=== PATIENT | female | born 1985 | race Caucasian/White ===

== ENCOUNTER → 2017-10-25 09:39 | Outpatient (CLI) | payer BC, SELFPAY ==
[2017-10-25 10:46] LABS: HCT 30.2 % (36.0-46.0); HGB 9.6 g/dL (12.0-15.5); Mean Corp. HGB Concentration 31.8 g/dL (32.0-36.0); Mean Corpuscular Hemoglobin 27.6 pg (27.0-33.0); Mean Corpuscular Volume 86.8 fL (80-95); Mean Platelet Volume 10.1 fL (8.0-11.0); Platelet Count 226 x1000/uL (130-400); RBC 3.48 m/cumm (4.00-5.20); RBC Distribution Width 13.3 % (11.7-14.6); White Blood Cell Count 10.42 k/cumm (4.4-10.8)
[2017-10-25 10:52] LABS: Glucose,1 Hr (Glucola) 111 mg/dL (80-140)
== END ==
PROVIDERS: PCP Nurse Practitioner Family; Visit Provider Midwife
DX: Z34.93 Encounter for supervision of normal pregnancy, unspecified, third trimester (principal); Z3A.28 28 weeks gestation of pregnancy
CPT/HCPCS: 36415; 82950; 85027

== ENCOUNTER 2017-12-12 11:46 | Outpatient (REF) | payer BC, SELFPAY | END 2017-12-12 12:06 | LOC: LBN 11:46 | PROVIDERS: PCP Nurse Practitioner Family; Visit Provider Advanced Practice Midwife | DX: Z34.93 Encounter for supervision of normal pregnancy, unspecified, third trimester (principal); Z36.85 Encounter for antenatal screening for Streptococcus B | CPT/HCPCS: 87081 ==

== ENCOUNTER 2017-12-20 09:04 | Outpatient (CLI) | payer BC, SELFPAY ==
[2017-12-20 09:51] LABS: HCT 29.8 % (36.0-46.0); HGB 9.2 g/dL (12.0-15.5); Mean Corp. HGB Concentration 30.9 g/dL (32.0-36.0); Mean Corpuscular Hemoglobin 23.8 pg (27.0-33.0); Mean Corpuscular Volume 77.2 fL (80-95); Mean Platelet Volume 10.8 fL (8.0-11.0); Platelet Count 266 x1000/uL (130-400); RBC 3.86 m/cumm (4.00-5.20); RBC Distribution Width 14.9 % (11.7-14.6); White Blood Cell Count 12.44 k/cumm (4.4-10.8)
== END 2017-12-20 09:24 ==
PROVIDERS: PCP Nurse Practitioner Family; Visit Provider Advanced Practice Midwife
DX: O99.013 Anemia complicating pregnancy, third trimester (principal)
CPT/HCPCS: 36415; 85027

== ENCOUNTER 2018-01-11 09:30 | Outpatient (RCR) | payer BC, SELFPAY ==
[2017-12-27] MEDS: IRON SUCROSE COMPLEX 200 MG in Normal Saline 100 ML 110 MG IVPB (09:43)
[2017-12-27] MEDS: Normal Saline Flush 10 ML SYR IVP (09:43)
[2018-01-11] MEDS: Normal Saline Flush 10 ML SYR IVP (09:48)
[2018-01-11] MEDS: IRON SUCROSE COMPLEX 200 MG in Normal Saline 100 ML 110 MG IVPB (10:56)
== END 2018-01-25 23:59 | disposition home or self-care (01) ==
LOC: INF 09:30
PROVIDERS: PCP Nurse Practitioner Family; Visit Provider Advanced Practice Midwife
DX: O99.013 Anemia complicating pregnancy, third trimester (principal); Z3A.37 37 weeks gestation of pregnancy
CPT/HCPCS: 96365; J1756

== ENCOUNTER 2018-01-14 08:21 | Outpatient (CLI) | payer BC, SELFPAY | END 2018-01-14 08:41 | PROVIDERS: PCP Nurse Practitioner Family; Visit Provider Advanced Practice Midwife | DX: O48.0 Post-term pregnancy (principal); Z3A.40 40 weeks gestation of pregnancy | CPT/HCPCS: 59025 ==

== ENCOUNTER 2018-01-18 07:36 | Outpatient (CLI) | payer BC, SELFPAY | END 2018-01-18 07:56 | PROVIDERS: PCP Nurse Practitioner Family; Visit Provider Nurse Practitioner | DX: O48.0 Post-term pregnancy (principal); Z3A.41 41 weeks gestation of pregnancy | CPT/HCPCS: 59025 ==

== ENCOUNTER 2018-01-18 11:04 | Inpatient (IN) | payer BC, SELFPAY ==
[2018-01-18] MEDS: Dinoprostone-CERVICAL 10 MG VSUPP VG (19:05)
[2018-01-18] MEDS: Normal Saline Flush 10 ML SYR IVP (19:35)
[2018-01-18 19:55] LABS: HCT 33.8 % (36.0-46.0); HGB 10.4 g/dL (12.0-15.5); Mean Corp. HGB Concentration 30.8 g/dL (32.0-36.0); Mean Corpuscular Hemoglobin 24.3 pg (27.0-33.0); Mean Platelet Volume 10.5 fL (8.0-11.0); Platelet Count 238 x1000/uL (130-400); RBC 4.28 m/cumm (4.00-5.20); White Blood Cell Count 10.35 k/cumm (4.4-10.8)
[2018-01-19] MEDS: Normal Saline Flush 10 ML SYR (08:03)
[2018-01-19] MEDS: Normal Saline Flush 10 ML SYR IVP (09:40)
[2018-01-19] MEDS: Lactated Ringers 1,000 ML 125 ML IV ×2 (09:40→17:14)
[2018-01-19] MEDS: Bupivacaine 0.25% Pres-Free 30 ML VIAL (23:05)
[2018-01-19] MEDS: fentaNYL 100 MCG/2 ML VIAL EP (23:07)
--- NOTE | 2018-01-20 01:14 | W.PM.PROGNOT ---
Date of Service Date of service: 01/20/18 Time of Service: 01:14 Subjective Interval history since last seen: called to evaluate tracing for category 2 tracing persistent lates with good variability and return to baseline pitocin discontinued 6 cm/90/AROM clear agree with non reassuring tracing discussed reason and recommendation for PCS with patient who agrees to proceed to PCS R/B/A reviewed consent signed OR team paged Objective Objective Clinical Data: Intake & Output 01/19/18 01/19/18 01/20/18 11:59 23:59 11:59 Intake Total 17.7 / 17.7 1015.3 / 1015.3 Balance 17.7 / 17.7 1015.3 / 1015.3 Intake: IV 17.7 / 17.7 1015.3 / 1015.3 Laboratory Results WBC 10.35 k/cumm (4.4-10.8) 01/18/18 19:40 RBC 4.28 m/cumm (4.00-5.20) 01/18/18 19:40 Hgb 10.4 g/dL (12.0-15.5) L 01/18/18 19:40 Hct 33.8 % (36.0-46.0) L 01/18/18 19:40 MCV 79.0 fL (80-95) L 01/18/18 19:40 MCH 24.3 pg (27.0-33.0) L 01/18/18 19:40 MCHC 30.8 g/dL (32.0-36.0) L 01/18/18 19:40 RDW 23.0 % (11.7-14.6) H 01/18/18 19:40 Plt Count 238 x1000/uL (130-400) 01/18/18 19:40 MPV 10.5 fL (8.0-11.0) 01/18/18 19:40 Patient ABO/Rh B Positive 01/18/18 19:40 Antibody Screen Negative 01/18/18 19:40
[2018-01-20] MEDS: Sodium Citrate 30 ML CUP PO (02:00)
[2018-01-20] MEDS: Lidocaine 2% Pres-Free 5 ML VIAL (02:10)
--- NOTE | 2018-01-20 03:05 | W.PM.OP ---
Date of service: 01/20/18 Time of Service: 03:05 Operative Note DATE OF PROCEDURE: 01/20/18 PRE-OP DIAGNOSIS: persistent category 2 tracing POST-OP DIAGNOSIS: same PROCEDURE: Primary Low Transverse Cesaran Section SURGEON: Homa Peña MACHINE ETCHER: Lorelei Crawley ANESTHESIA: epidural ESTIMATED BLOOD LOSS: 500 PATHOLOGY: none sent COMPLICATIONS: None Patient was transported to: PACU Patient's condition: stable Implants: none Indications: G1 41.1 weeks persistent category 2 tracing Findings: normal uterus tubes and ovaries viable male infant Apgars 8, 9 weight postponed for skin to skin nuchal cord x 1 ROT Placenta intact 3 vessel cord venous cord pH 7.35 Procedure Description: Indication and Procedure was explained to patient, consent was signed. Patient was brought to the OR. She had established epidural which was bolused, an [id number] mcguire and SCD boots She revieved 2 gms Ancef and 1 gm Azithromycin. A formal time out was performed with all surgical personnel present and concurring right patient right procedure. A vaginal betadine prep was performed and she was prepped and draped in the usual fashion. After establishing adequate epidural anesthesia a Pfanninsteil incision was made 2 cm above the symphysis and carried down to the fascia. The fascia was nicked in the midline and opened sharply bilaterally. The inferior aspect of the fascia was grasped and the rectus muscles sharply dissected attention was turned to the superior aspect of the fascia and in asimilar fashion the fascia was dissected from the rectus muscle. The rectus muscle was sepateded in the midline and the peritoneum was entered bluntly and extended superior and inferiorly with good visualization of the vblsdder. The [id number] flap was created and the bladder blade repositioned. The lower uterine incision was transversely incised to the uterine cavity and th eincision was extended manuallt. The infants head was delivered atraumaticlly with nuchal cord easily reduced body and shoulders followed with ease. Cord was clamped cut and handed to rehab therapy manager. cord pH obtained. The placenta was manually expressed the uterus was exteriorized and cleared of clot and debris. The uterus was closed in a double layer of o-vicryl. Peritenom with 2-0 Fascia 0 Vicryl Sub Q with 3-0 plain Skin closed 4-0 monocryl on Aliza needle Sponge lap needle and instrument count correct x 2.
--- NOTE | 2018-01-20 03:19 | ROE_ITS ---
Date of service: 01/20/18 Time of Service: 03:05 Operative Note DATE OF PROCEDURE: 01/20/18 PRE-OP DIAGNOSIS: persistent category 2 tracing POST-OP DIAGNOSIS: same PROCEDURE: Primary Low Transverse Cesaran Section SURGEON: Homa Peña OUTBOUND TELEMARKETER: Lorelei Crawley ANESTHESIA: epidural ESTIMATED BLOOD LOSS: 500 PATHOLOGY: none sent COMPLICATIONS: None Patient was transported to: PACU Patient's condition: stable Implants: none Indications: G1 41.1 weeks persistent category 2 tracing Findings: normal uterus tubes and ovaries viable male infant Apgars 8, 9 weight postponed for skin to skin nuchal cord x 1 ROT Placenta intact 3 vessel cord venous cord pH 7.35 Procedure Description: Indication and Procedure was explained to patient, consent was signed. Patient was brought to the OR. She had established epidural which was bolused, an [id number] mcguire and SCD boots She revieved 2 gms Ancef and 1 gm Azithromycin. A formal time out was performed with all surgical personnel present and concurring right patient right procedure. A vaginal betadine prep was performed and she was prepped and draped in the usual fashion. After establishing adequate epidural anesthesia a Pfanninsteil incision was made 2 cm above the symphysis and carried down to the fascia. The fascia was nicked in the midline and opened sharply bilaterally. The inferior aspect of the fascia was grasped and the rectus muscles sharply dissected attention was turned to the superior aspect of the fascia and in asimilar fashion the fascia was dissected from the rectus muscle. The rectus muscle was sepateded in the midline and the peritoneum was entered bluntly and extended superior and inferiorly with good visualization of the vblsdder. The [id number] flap was created and the bladder blade repositioned. The lower uterine incision was transversely incised to the uterine cavity and th eincision was extended manuallt. The infants head was delivered atraumaticlly with nuchal cord easily reduced body and shoulders followed with ease. Cord was clamped cut and handed to assembly repairer. cord pH obtained. The placenta was manually expressed the uterus was exteriorized and cleared of clot and debris. The uterus was closed in a double layer of o-vicryl. Peritenom with 2-0 Fascia 0 Vicryl Sub Q with 3-0 plain Skin closed 4-0 monocryl on Aliza needle Sponge lap needle and instrument count correct x 2.
[2018-01-20] MEDS: Lactated Ringers 1,000 ML 200 ML IV (04:13)
--- NOTE | 2018-01-20 11:52 | W.PM.PROGNOT ---
Date of Service Date of service: 01/20/18 Time of Service: 11:52 Assessment and Plan (1) delivery, delivered, current hospitalization: Start date: 01/20/18 Current visit: Yes Status: Acute doing well post op except sensation of spinning checking with anesthesia re possibility of scopolamine side effect CBC pending keep mcguire in until sx ruby ambulate with assistance advance diet as tolerated (2) Dizzinesses: Start date: 01/20/18 Start time: 12:04 Current visit: Yes Status: Acute assessing etiology anesthesia to comment on scopolamine patch checking cbc if no improvement can consider meclazine ambulate with assistance Subjective Patient reports: tolerating liquids well, no flatus and other (having problems with room spinning when she moves her head, and trouble with double vision at distal focal lengths) Interval history since last seen: pain well controlled Exam Const Other: pale appearing, closing eyes to prevent spinning sensation Chest Chest: normal inspection of the chest Other: breast feeding Resp Effort & Inspection: normal respiratory effort Auscultation: clear to auscultation bilaterally Cardio Rhythm: regular rhythm Heart Sounds: S1 normal and S2 normal Other: fundus firm appropriate tenderness dsg dry and intact Extrem General: normal to inspection Right lower extremity: normal to inspection Left lower extremity: normal to inspection Other: SCD boots on bilaterally Objective Objective Clinical Data: Intake & Output 01/19/18 01/19/18 01/20/18 11:59 23:59 11:59 Intake Total 17.7 / 17.7 1015.3 / 1015.3 2893.600 / 2893.600 Output Total 600 / 600 Balance 17.7 / 17.7 1015.3 / 1015.3 2293.600 / 2293.600 Intake: IV 17.7 / 17.7 1015.3 / 1015.3 2893.600 / 2893.600 Output: Urine 100 / 100 Estimated Blood Loss 500 / 500 Laboratory Results WBC 10.35 k/cumm (4.4-10.8) 01/18/18 19:40 RBC 4.28 m/cumm (4.00-5.20) 01/18/18 19:40 Hgb 10.4 g/dL (12.0-15.5) L 01/18/18 19:40 Hct 33.8 % (36.0-46.0) L 01/18/18 19:40 MCV 79.0 fL (80-95) L 01/18/18 19:40 MCH 24.3 pg (27.0-33.0) L 01/18/18 19:40 MCHC 30.8 g/dL (32.0-36.0) L 01/18/18 19:40 RDW 23.0 % (11.7-14.6) H 01/18/18 19:40 Plt Count 238 x1000/uL (130-400) 01/18/18 19:40 MPV 10.5 fL (8.0-11.0) 01/18/18 19:40 Patient ABO/Rh B Positive 01/18/18 19:40 Antibody Screen Negative 01/18/18 19:40
[2018-01-20 12:17] LABS: HCT 29.8 % (36.0-46.0); HGB 9.2 g/dL (12.0-15.5); Mean Corp. HGB Concentration 30.9 g/dL (32.0-36.0); Mean Corpuscular Hemoglobin 24.2 pg (27.0-33.0); Mean Corpuscular Volume 78.4 fL (80-95); Mean Platelet Volume 10.2 fL (8.0-11.0); Platelet Count 180 x1000/uL (130-400); RBC Distribution Width 23.7 % (11.7-14.6); White Blood Cell Count 16.33 k/cumm (4.4-10.8)
[2018-01-20] MEDS: Normal Saline Flush 10 ML SYR IVP ×3 (13:25→23:30)
[2018-01-20] MEDS: Ketorolac 30 MG/ML VIAL IVP ×3 (13:25→23:28)
--- NOTE | 2018-01-20 14:51 | NUR.NOTE ---
Nursing Note: 01/20/18 12:00 Patient has been complaining of feeling dizzy and the room moving MD Ai Peña removed Scopolamine Patch at 12:00.
[2018-01-20] MEDS: Lactated Ringers 1,000 ML 125 ML IV (16:30)
[2018-01-21 07:20] LABS: HCT 30.1 % (36.0-46.0); HGB 8.9 g/dL (12.0-15.5); Mean Corp. HGB Concentration 29.6 g/dL (32.0-36.0); Mean Corpuscular Hemoglobin 23.6 pg (27.0-33.0); Mean Corpuscular Volume 79.8 fL (80-95); Mean Platelet Volume 10.5 fL (8.0-11.0); Platelet Count 178 x1000/uL (130-400); RBC 3.77 m/cumm (4.00-5.20); RBC Distribution Width 24.2 % (11.7-14.6); White Blood Cell Count 11.78 k/cumm (4.4-10.8)
[2018-01-21] MEDS: Acetaminophen 325 MG TAB 650 MG PO (13:13)
[2018-01-21] MEDS: Ketorolac 30 MG/ML VIAL IVP (13:55)
[2018-01-21] MEDS: Normal Saline Flush 10 ML SYR IVP (13:55)
[2018-01-21] MEDS: Ibuprofen 800 MG TAB PO (21:39)
[2018-01-22] MEDS: Ibuprofen 800 MG TAB PO ×2 (06:10→12:39)
--- NOTE | 2018-01-22 10:34 | W.PM.DS.N ---
DS: Diagnosis Discharge Diagnosis (1) delivery, delivered, current hospitalization: Status: Acute (2) Dizzinesses: Status: Acute Discharge Plan Disposition Patient Disposition: HOME Condition: Good Discharge Details Reason For Visit: POSTTERM IUP 41.1 WEEKS Admit Date/Time: 01/18/18 11:04 Admit Provider: Homa Peña Attending Provider: Homa Peña Primary Care Provider: Almaz Small Hospital Course Hospital Course: 32yo WF who was admitted to Labor and delivery at 41 3/7 wks who was admitted for induction secondary to Post dates. Pt was progressing in Labor but began having non-reassuring heart rate tracing which included both deep variables and late decelerations. Therefore the Pt was taken to the OR to undergo a Primary Section by Dr. Peña on 01/20/18. She delivered a viable male with the weight of 3525grms and Apgars of 8 and 9 at 1 and 5 minutes respectively. Pt's course has been uncomplicated. Her incision is intact without sign of infection and is able to be discharged home in stable satisfactory condition on POD #2. Post instructions were reviewed with the Pt and she expressed understanding. Her Post OP Hb is 8.9. Pt did not desire transfusion at this time which she has received before since cannot tolerate oral iron. States will eat a high iron diet. Home Meds and New Rx's Prescriptions: No Action calcium carbonate [Tums] 200 mg calcium (500 mg) tablet,chewable 200 mg PO BID RF: 0 floradix PO RF: 0 iron sucrose [Venofer] 200 mg iron/10 mL solution 200 mg IV ONCE Qty: 50 RF: 0 PNV 305-sjder-tyqry-3-fish oil [ with DHA-Folic Acid] 1 EACH tablet,chewable 1 ea PO BID RF: 0 Calcium/Magnesium/Vitamin D3 [Abdiaziz-Mag Complex 300-150 mg Tab] 1 EACH tablet 1 ea PO DAILY Qty: 2 RF: 0 Discharge Instructions Additional Instructions: Nothing per vagina x 6 weeks No heavy lifting x 6 weeks, nothing heavier than the Baby No driving x 2 weeks Continue vitamins as long as breast feeding Activity:: Activity as Tolerated Equipment/Supplies:: No Equipment Needed Diet:: Normal Diet Discharge Orders Discharge Orders: Discharge Order (Routine); Ordered 01/22/18 Ordered By: Katelynn Jackson DS: Summary Status at Discharge Functional status at discharge: independent ambulation Exam Const General: cooperative, comfortable and no acute distress HENMT Head: normal to inspection Eyes General: appearance normal, both eyes and all related structures EOM: EOM intact bilaterally Chest Chest: normal inspection of the chest Resp Effort & Inspection: normal respiratory effort Auscultation: clear to auscultation bilaterally Cardio Rate: regular rate Rhythm: regular rhythm GI Inspection: normal to inspection Palpation: soft Auscultation: normal bowel sounds Skin General skin exam: no rashes or lesions noted Neuro General: alert and oriented x3 Extrem General: normal to inspection Psych Appearance: grossly normal and well kempt DS: Data Vitals/I&O Vitals and I&O: Vital Signs Pain Level 2 01/22/18 06:10 PFSH Family History Father Essential hypertension Hyperlipidemia Mental disorder Mother No problems noted. Sister No problems noted. 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
--- NOTE | 2018-01-22 10:39 | DSE_ITS ---
DS: Diagnosis Discharge Diagnosis (1) delivery, delivered, current hospitalization: Status: Acute (2) Dizzinesses: Status: Acute Discharge Plan Disposition Patient Disposition: HOME Condition: Good Discharge Details Reason For Visit: POSTTERM IUP 41.1 WEEKS Admit Date/Time: 01/18/18 11:04 Admit Provider: Homa Peña Attending Provider: Homa Peña Primary Care Provider: Almaz Small Hospital Course Hospital Course: 32yo WF who was admitted to Labor and delivery at 41 3/7 wks who was admitted for induction secondary to Post dates. Pt was progressing in Labor but began having non-reassuring heart rate tracing which included both deep variables and late decelerations. Therefore the Pt was taken to the OR to undergo a Primary Section by Dr. Peña on 01/20/18. She delivered a viable male with the weight of 3525grms and Apgars of 8 and 9 at 1 and 5 minutes respectively. Pt's course has been uncomplicated. Her incision is intact without sign of infection and is able to be discharged home in stable satisfactory condition on POD #2. Post instructions were reviewed with the Pt and she expressed understanding. Her Post OP Hb is 8.9. Pt did not desire transfusion at this time which she has received before since cannot tolerate oral iron. States will eat a high iron diet. Home Meds and New Rx's Prescriptions: No Action calcium carbonate [Tums] 200 mg calcium (500 mg) tablet,chewable 200 mg PO BID RF: 0 floradix PO RF: 0 iron sucrose [Venofer] 200 mg iron/10 mL solution 200 mg IV ONCE Qty: 50 RF: 0 PNV 120-wymth-ehhnv-3-fish oil [ with DHA-Folic Acid] 1 EACH tablet, chewable 1 ea PO BID RF: 0 Calcium/Magnesium/Vitamin D3 [Abdiaziz-Mag Complex 300-150 mg Tab] 1 EACH tablet 1 ea PO DAILY Qty: 2 RF: 0 Discharge Instructions Additional Instructions: Nothing per vagina x 6 weeks No heavy lifting x 6 weeks, nothing heavier than the Baby No driving x 2 weeks Continue vitamins as long as breast feeding Activity:: Activity as Tolerated Equipment/Supplies:: No Equipment Needed Diet:: Normal Diet Discharge Orders Discharge Orders: Discharge Order (Routine); Ordered 01/22/18 Ordered By: Katelynn Jackson DS: Summary Status at Discharge Functional status at discharge: independent ambulation Exam Const General: cooperative, comfortable and no acute distress HENMT Head: normal to inspection Eyes General: appearance normal, both eyes and all related structures EOM: EOM intact bilaterally Chest Chest: normal inspection of the chest Resp Effort & Inspection: normal respiratory effort Auscultation: clear to auscultation bilaterally Cardio Rate: regular rate Rhythm: regular rhythm GI Inspection: normal to inspection Palpation: soft Auscultation: normal bowel sounds Skin General skin exam: no rashes or lesions noted Neuro General: alert and oriented x3 Extrem General: normal to inspection Psych Appearance: grossly normal and well kempt DS: Data Vitals/I&O Vitals and I&O: Vital Signs Pain Level 2 01/22/18 06:10 PFSH Family History Father Essential hypertension Hyperlipidemia Mental disorder Mother No problems noted. Sister No problems noted. 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
== END 2018-01-22 13:45 | disposition home or self-care (01) | DRG 788 ==
PROVIDERS: Admitting Provider Nurse Practitioner; PCP Nurse Practitioner Family; Visit Provider Obstetrics & Gynecology
PROC: 10D00Z1 Extraction of Products of Conception, Low, Open Approach (ICD-10-PCS; CPT 59514; principal; 2018-01-20 01:35)
DX: O48.0 Post-term pregnancy (principal); O76 Abnormality in fetal heart rate and rhythm complicating labor and delivery; Z37.0 Single live birth; Z3A.41 41 weeks gestation of pregnancy; R42 Dizziness and giddiness; O69.1XX0 Labor and delivery complicated by cord around neck, with compression, not applicable or unspecified
CPT/HCPCS: 59514; 36415; 85027; 86850; 86900; 86901; 99233; 99238; NC; 59200; J0171; J0456; J0690; J1885; J2405; J2765; J3010; J3490

== ENCOUNTER 2021-12-19 08:52 | Outpatient (REF) | payer BC, SELFPAY ==
[2021-12-19 16:06] LABS: Anion Gap 8.1 mmol/L (3-11); BUN 12 mg/dL (7-18); CO2 25.9 mmol/L (21.0-32.0); Calcium 9.2 mg/dL (8.5-10.1); Calculated LDL 65 mg/dL (<100); Chloride 105 mmol/L (98-107); Cholesterol 143 mg/dL (<200); Estimated GFR 75.34 (mL/min/1.73m2); Glucose 94 mg/dL (74-106); HDL Cholesterol 73 mg/dL (40-60); Potassium 4.3 mmol/L (3.5-5.1); Sodium 139 mmol/L (136-145); TSH (W/Ref FT4) 1.25 uIU/mL (0.36-3.74); Triglyceride 27 mg/dL (<150)
== END 2021-12-19 08:53 | disposition home or self-care (01) ==
LOC: NCHCN 08:52
PROVIDERS: PCP Nurse Practitioner Family; Visit Provider Nurse Practitioner Family
DX: Z00.00 Encounter for general adult medical examination without abnormal findings (principal); Z13.220 Encounter for screening for lipoid disorders; Z13.29 Encounter for screening for other suspected endocrine disorder; Z13.228 Encounter for screening for other metabolic disorders
CPT/HCPCS: 80048; 80061; 84443

== ENCOUNTER 2022-12-26 10:47 | Outpatient (REF) | payer OTHER, SELFPAY ==
--- NOTE | 2022-12-26 11:00 | PAPFT_PTH ---
PATIENT: Jeff Porter LOC: NCN #:[id number] AGE/SX: 37/F ROOM: RE12/26/[address]: RADHA WEBER : 1985 BED: DIS: 12/26/2022 SPEC #: [id number] RECD: 12/26/22 18:31 STATUS: [facility] REQ #: [id number] JODY: 12/26/22 11:[address]: Radha Weber DEPT: [facility] Cytology RECD BY: Rosario Irby ENTERED: 12/26/22 18:31 SP TYPE: PAPFT OTHR DR: Almaz Small Tissues: 1 - CX/ENDOCX FOR PAP SMEARS Procedures: PAP THIN PREP/[facility] Screening HPV DNA PROBE Comments: [id number]
== END 2022-12-26 10:48 | disposition home or self-care (01) ==
LOC: NCHCN 10:47
PROVIDERS: PCP Nurse Practitioner Family; Visit Provider Nurse Practitioner Family
DX: Z12.4 Encounter for screening for malignant neoplasm of cervix; Z11.51 Encounter for screening for human papillomavirus (HPV)
CPT/HCPCS: 88142; 87624

== ENCOUNTER 2024-08-26 18:59 | Outpatient (REF) | payer BC, SELFPAY ==
[2024-08-26 19:11] LABS: Abs Immature Grans 0.03 10^3/uL (0.0-0.06); HCT 32.9 % (36.0-46.0); HGB 9.5 g/dL (11.2-15.7); Immature Grans % 0.4 %; MCH 20.6 pg (27.0-33.0); MCHC 28.9 % (32.0-36.0); MCV 71 fL (80-95); MPV 10.7 fL (8.0-11.0); Platelet Count 343 10^3/uL (130-400); RBC 4.62 10^6/uL (3.93-5.22); RDW 18.4 % (11.7-14.6); RDW-SD 45.9 fL; WBC 8.50 10^3/uL (4.4-10.8)
[2024-08-26 19:31] LABS: ALT 26 U/L (14-59); AST 18 U/L (15-37); Albumin 4.4 g/dL (3.4-5.0); Alkaline Phosphatase 69 U/L (46-116); Anion Gap 10.4 mmol/L (3-11); BUN 15 mg/dL (7-18); Bilirubin, Total 0.3 mg/dL (0.2-1.0); CO2 24.6 mmol/L (21.0-32.0); Calcium 9.2 mg/dL (8.5-10.1); Calculated LDL 75 mg/dL (<100); Chloride 102 mmol/L (98-107); Cholesterol 155 mg/dL (<200); Estimated GFR 83.92 (mL/min/1.73m2); Glucose 90 mg/dL (74-106); HDL Cholesterol 71 mg/dL (>or=50); Potassium 4.0 mmol/L (3.5-5.1); Sodium 137 mmol/L (136-145); TSH (W/Ref FT4) 1.07 uIU/mL (0.36-3.74); Total Protein 8.1 g/dL (6.4-8.2); Triglyceride 49 mg/dL (<150)
[2024-08-26 19:38] LABS: Microcytosis 2+
[2024-08-26 19:45] LABS: Hemoglobin A1C 5.7 % (<5.7)
== END 2024-08-26 19:00 | disposition home or self-care (01) ==
LOC: NCHCN 18:59
PROVIDERS: Visit Provider Student in an Organized Health Care Education/Training Program
DX: N92.4 Excessive bleeding in the premenopausal period (principal); Z13.220 Encounter for screening for lipoid disorders; Z13.1 Encounter for screening for diabetes mellitus; Z13.228 Encounter for screening for other metabolic disorders
CPT/HCPCS: 80053; 80061; 83036; 84443; 85025